=== PATIENT | male | born 2005 | race Caucasian/White ===

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

== ENCOUNTER 2024-03-05 19:08 | Emergency (ER) | payer MEDICAID, SELFPAY ==
[2024-03-05 19:09] VITALS: BP 133/71; PULSE 103; RESP 18; TEMP 36.2; O2SAT 98
--- OUTSIDE RECORDS SUMMARY | 2024-03-05 19:18 | XMS_ITS | Clinical Summary ---
Author Organization [facility] Address [address] [place] [address] Care Team Providers Care Surface Plate Inspector Name Role Phone Unavailable Primary Care Provider Unavailabl e Social History Tobacco Use Types Packs/Day Years Used Date Smoking Tobacco: Never Assessed Sex and Gender Information Value Date Recorded Sex Assigned at Not on file Legal Sex Male 11:29 EST Gender Identity Not on file Sexual Orientation Not on file Plan of Treatment Health Maintenance Due Date Last Done Comments Hepatitis C Screen 2004 Hepatitis B Vaccine (1 of 3 - 19+ 3-dose series) 03/09 COVID-19 Vaccine (2023- season) 2023
--- OUTSIDE RECORDS SUMMARY | 2024-03-05 19:18 | XMS_ITS | Encounter Summary ---
Author Organization [facility] Address [address] [place] [address] Care Team Providers Care Ob Scrub Tech Name Role Phone Unavailable Primary Care Provider Unavailabl e Encounter Details Date Type Department Care Team (Late st Contact Info) Description 02/14/2021 Lab Requisition [facility] Pathology & Laboratory Medicine - [facility] [address] [place] [address] Outr Resulting Lab, Provider Social History Tobacco [...] Priority Date/Time Associated Diagnosis Comments ZZCOVID-19 TEST [facility] PCR Today 02/13/2021 10:52 EST COVID-19 TESTING Routine 02/13/2021 10:5 2 EST documented in this encounter Results * COVID-19 TEST [facility] PCR (02/13/2021 10:52 EST) Swab 02/13/2021 10:5 2 EST 02/14/2021 23:15 EST us Provider Outr Resulting Lab MICROBIOLOGY - GENER AL ORDERABLES Final Result [facility] [address] [place] [address] * COVID-19 TESTING (02/13/2021 10:52 EST) COVID-19 rt-PCR Result Negative Negative 02/15/2021 16:53 EST [facility] Comment: This test has not [...] was performed using the ambreen SARS-CoV-2 assay ([employer] on the Ambreen 6800 System Performing Lab Ambreen 6800 [facility] Lab 02/15/2021 16:53 EST [facility] Swab 02/13/2021 10:5 2 EST 02/14/2021 23:15 EST us Provider Outr Resulting Lab MICROBIOLOGY - GENER AL ORDERABLES Final Result [facility] [address] [place] [address] documented in this encounter Visit Diagnoses Not on filedocumented in this encounter
--- OUTSIDE RECORDS SUMMARY | 2024-03-05 19:18 | XMS_ITS | Encounter Summary ---
Author Organization [facility] Address [address] [place] [address] Care Team Providers Care Tumbling And Rolling Supervisor Name Role Phone Unavailable Primary Care Provider Unavailabl e Encounter Details Date Type Department Care Team (Late st Contact Info) Description 09/17/2021 Lab Requisition [facility] Pathology & Laboratory Medicine - [facility] [address] [place] [address] Outr Resulting Lab, Provider Social History Tobacco [...] TEST [facility] PCR Today 09/17/2021 11:45 EDT COVID-19 TESTING Routine 09/17/2021 11:4 5 EDT documented in this encounter Results * COVID-19 TEST [facility] PCR (09/17/2021 11:45 EDT) Swab 09/17/2021 11:4 5 EDT 09/18/2021 16:10 EDT us Provider Outr Resulting Lab MICROBIOLOGY - GENER AL ORDERABLES Final Result [facility] [address] [place] [address] * COVID-19 TESTING (09/17/2021 11:45 EDT) COVID-19 rt-PCR Result Negative Negative 09/19/2021 11:14 EDT [facility] Comment: This test has not [...] was performed using the ambreen SARS-CoV-2 assay ([employer] on the Ambreen 6800 System Performing Lab Ambreen 6800 [facility] Lab 09/19/2021 11:14 EDT [facility] Swab 09/17/2021 11:4 5 EDT 09/18/2021 16:10 EDT us Provider Outr Resulting Lab MICROBIOLOGY - GENER AL ORDERABLES Final Result [facility] [address] [place] [address] documented in this encounter Visit Diagnoses Not on filedocumented in this encounter
--- OUTSIDE RECORDS SUMMARY | 2024-03-05 19:18 | XMS_ITS | Clinical Summary ---
Author Organization [facility] [place] [address] Care Team Providers Care Line Patrolman Name Role Phone Unknown Primary Care Provider [...] - Tdap) 03/09 Covid-19 Vaccine (1 - 2023- season) 2023 Influenza (Flu) vaccine (1 o f 1 - Influenza standard series) 10/26/2023 Care Teams Line Patrolman Relationship Specialty Start Date End Date Unknown None PCP - General 07/10/21
--- OUTSIDE RECORDS SUMMARY | 2024-03-05 19:18 | XMS_ITS | Referral Summary ---
Author Organization [facility] Address [address] [place] [address] Care Team Providers Care Wood Setter Name Role Phone Unavailable Primary Care Provider Unavailabl e Social History Tobacco Use Types Packs/Day Years Used Date Smoking Tobacco: Never Assessed Sex and Gender Information Value Date Recorded Sex Assigned at Not on file Legal Sex Male 11:29 EST Gender Identity Not on file Sexual Orientation Not on file Plan of Treatment Not on file
--- NOTE | 2024-03-05 19:40 | ED.GENADUL_ITS ---
Discharge Plan Disposition Patient Disposition: Home Discharge Details Clinical Impression: Abdominal pain, vomiting, and diarrhea, Acute dehydration, ANTONIO (acute kidney injury) Primary Care Provider: Mau Blunt ED Provider: Brianda Garcia Home Meds and New Rx's Prescriptions: New ondansetron 4 mg tablet,disintegrating 4 mg PO Q6H PRN (Reason: nausea and vomiting) Qty: 30 0RF promethazine 25 mg tablet 25 mg PO Q6H PRN (Reason: nausea and vomiting) Qty: 20 0RF Discharge Instructions Instructions: Nausea and vomiting in adults Additional Instructions: Continue taking Zofran as needed for nausea. You were provided with a take-home bottle and additional prescription has been sent to the pharmacy. Your lab work does demonstrate signs of mild dehydration and kidney injury, please make sure to drink plenty of fluids over the next few days. You should advance your diet slowly as you tolerate Return if you are unable to tolerate anything thing by mouth HPI General Date/Time Provider Initiated Documentation: 03/05/24 19:32 . Limitations to Documentation: no limitations . Information obtained by: patient . HPI Narrative: 18-year-old gentleman without significant past medical history presents for evaluation of vomiting and diarrhea. Symptoms have been present all day. He reports multiple episodes of vomiting. Reports multiple episodes of diarrhea. He states that when he vomits he has cramping abdominal pain. Denies any fever. Girlfriend had similar symptoms a few days ago. Has not tried any medication for relief. Related Data Home Medications ?Medication ?Instructions ?Recorded ?Confirmed ondansetron 4 mg disintegrating 4 mg PO Q6H PRN nausea and 03/05/24 tablet vomiting #30 tabs promethazine 25 mg tablet 25 mg PO Q6H PRN nausea and 03/05/24 vomiting #20 tabs Previous Rx's ?Medication ?Instructions ?Recorded ondansetron 4 mg disintegrating 4 mg PO Q6H PRN nausea and 03/05/24 tablet vomiting #30 tabs promethazine 25 mg tablet 25 mg PO Q6H PRN nausea and 03/05/24 vomiting #20 tabs Allergies Allergy/AdvReac Type Severity Reaction Status Date / Time No Known Allergies Allergy Verified 03/05/24 19:12 General Stated Complaint: Nausea/Vomit/Diar EMMANUEL: 3 Exam Narrative Exam Narrative: Review of Systems: All systems reviewed & are unremarkable except as noted in HPI and below Well-developed, no acute distress NCAT PERRL, normal conjunctiva Sunken eyes Dry mucous membranes Tachycardic Unlabored respiratory effort Nondistended abdomen soft nontender Course Vital Signs Vital signs: Vital Signs Temperature 36.2 C L 03/05/24 19:09 Pulse 103 H 03/05/24 19:09 Respiratory Rate 18 03/05/24 19:09 Blood Pressure 133/71 03/05/24 19:09 Pulse Oximetry 98 03/05/24 19:09 Temperature 36.2 C L 03/05/24 19:09 Temperature Source Tympanic 03/05/24 19:09 Pulse 103 H 03/05/24 19:09 Respiratory Rate 18 03/05/24 19:09 Blood Pressure 133/71 03/05/24 19:09 Blood Pressure Position Sitting 03/05/24 19:09 Pulse Oximetry 98 03/05/24 19:09 Oxygen Delivery Method Room Air 03/05/24 19:09 Oxygen Flow Rate 0 03/05/24 19:09 Medical Decision Making Urgent evaluation of vomiting and diarrhea. Initial differential includes viral illness, dehydration, doubt acute intra-abdominal pathology. Given high community prevalence, likely viral illness. Patient has clinical signs of dehydration. Will place IV give IV fluids, antiemetic and reassess. Lab work indicates mild ANTONIO and dehydration. After IV fluid resuscitation patient does report improvement in symptoms and is now tolerating p.o. Will discharge home with Zofran. And Phenergan prescriptions. Advised aggressive oral hydration at home. Advance diet slowly as tolerated. Recommended continued use. Of antiemetics as needed. Return precautions advised. Quality:SDOH Health Related Social Needs: No Data to Display [facility] All Active Problems (Updated 03/05/24 @ 20:58 by Brianda Garcia MD) ANTONIO (acute kidney injury) (Acute) Acute dehydration (Acute) Abdominal pain, vomiting, and diarrhea (Acute) Puncture wound (Acute) Chronic streptococcal tonsillitis (Acute) Healthy Child on Routine Physical Examination (Acute) Depression (Chronic) Normal weight, pediatric, BMI 5th to 84th percentile for age (Acute) Medical History Elevated blood pressure reading Sprain of left shoulder COVID-19 positive test 05-18-20 Eczema History of peritonsillar abscess Family History Mother Mental disorder Father No problems noted. Grandparent Substance abuse Essential hypertension Heart disease Mental disorder Social History Smoking/Tobacco Use Status: Never Second Hand Exposure: No Smoking risk assessment performed?: Yes Alcohol Intake: never Drug use: Occasionally Substance use type: marijuana Household members: family Housing: house Communication Needs: None Education Level: high school Details: 12th grade--[employer] 22-23 Pets and animals: Yes (1 dog) Pets and animals: dog(s) Do you feel safe at home: Yes Do you feel safe in your relationship?: Yes
[2024-03-05] MEDS: Lactated Ringers 1,000 ML 1000 ML IV (19:51)
[2024-03-05] MEDS: Ondansetron 4 MG/2 ML VIAL IVP (19:52)
[2024-03-05 20:17] LABS: BUN 21 mg/dL (7-18); CREATININE 1.4 mg/dL (0.70-1.30); Calcium 10.9 mg/dL (8.5-10.1); Chloride 100 mmol/L (98-107); Estimated GFR 74.25 (mL/min/1.73m2); Glucose 161 mg/dL (74-106); Potassium 4.5 mmol/L (3.5-5.1); Sodium 140 mmol/L (136-145)
[2024-03-05 21:06] VITALS: BP 130/72; PULSE 90; RESP 16; TEMP 36.8; O2SAT 99
== END 2024-03-05 21:06 | disposition home or self-care (01) ==
PROVIDERS: Emergency Provider Emergency Medicine; PCP Nurse Practitioner Pediatrics
DX: R11.10 Vomiting, unspecified (principal); R19.7 Diarrhea, unspecified; E86.0 Dehydration; N17.9 Acute kidney failure, unspecified
CPT/HCPCS: 80048; 96374; 99284; J2405